=== PATIENT | female | born 1990 | race African-American/Black ===

== ENCOUNTER 2022-06-03 05:42 | Emergency (ER) | payer MEDICAID, OTHER ==
[~2022-06-03] VITALS: Ht 157.5 cm; Wt 57.0 kg
[2022-06-03 05:42] VITALS: BP 127/80
[2022-06-03] MEDS ORDERED: SODIUM CHLORIDE 0.9% 1,000 ML IV ONE ×2 (06:00→07:45)
[2022-06-03] MEDS ORDERED: ONDANSETRON HCL 4 MG/2 ML VIAL IV ONE (06:30)
[2022-06-03 06:55] LABS: Basophils # (auto) 0 10 ^3/uL (0-0.2); Basophils % (auto) 0.4 % (0.0-2.0); Eosinophils # (auto) 0.1 10 ^3/uL (0-0.8); Eosinophils % (auto) 1.1 % (0.0-7.0); Hematocrit 33.8 % (36.0-46.0); Lymphocytes # (auto) 1.1 10 ^3/uL (0.4-5.4); Lymphocytes % (auto) 16.7 % (10.0-50.0); Mean Corpuscular Hemoglobin 33.1 pg (28.0-32.0); Mean Corpuscular Hgb Conc. 35.4 g/dL (32.0-36.0); Mean Corpuscular Volume 93.5 fL (80.0-100.0); Monocytes # (auto) 0.4 10 ^3/uL (0-1.3); Monocytes % (auto) 6.5 % (0.0-12.0); Neutrophils # (auto) 4.9 10 ^3/uL (1.6-8.6); Neutrophils % (auto) 75.3 % (37.0-80.0); Red Blood Cells 3.61 10^6/uL (4.0-5.20); Red Cell Distribution Width 12.2 % (11.8-14.3); White Blood Cell 6.6 10^3/uL (4.4-10.8)
[2022-06-03 07:02] LABS: Albumin 3.8 g/dL (3.4-5.0); Calcium 8.6 mg/dL (8.5-10.1)
[2022-06-03 07:06] LABS: BUN/Creatinine Ratio 17.2; Bilirubin, Total 0.5 mg/dL (0.2-1.0)
[2022-06-03 08:52] LABS: Urine Bacteria FEW /hpf (None Seen); Urine Blood Negative /uL (Negative); Urine Mucus FEW (None Seen); Urine Specific Gravity 1.017 (1.001-1.035); Urine WBC <1 /hpf (0 - 5)
[2022-06-03] MEDS ORDERED: ONDA-144 PO (09:04)
== END 2022-06-03 09:33 | disposition home or self-care (01) ==
LOC: ER 05:42
DX: O21.8 Other vomiting complicating pregnancy (principal); Z79.899 Other long term (current) drug therapy; Z3A.14 14 weeks gestation of pregnancy
CPT/HCPCS: 36415; 80053; 81001; 84702; 85025; 96361; 96374; 99283; J2405; J7030

== ENCOUNTER 2022-07-16 06:03 | Emergency (ER) | payer MEDICAID ==
[~2022-07-16] VITALS: Ht 157.5 cm; Wt 63.3 kg
[~2022-07-16 06:03] MED LIST: ONDA-144 PO
[2022-07-16 06:30] VITALS: BP 108/63
[2022-07-16] MEDS ORDERED: ACETAMINOPHEN 650 mg PER 20.3 mL UD PO ONE (07:15)
[2022-07-16] MEDS ORDERED: cefTRIAXone SOD 1,000 MG VL IM ONE (07:30)
[2022-07-16] MEDS ORDERED: CLIN300C8 PO (07:31)
[2022-07-16] MEDS ORDERED: ACET-1080 PO (07:31)
== END 2022-07-16 07:42 | disposition home or self-care (01) ==
LOC: ER 06:03
DX: K04.7 Periapical abscess without sinus (principal); Z79.2 Long term (current) use of antibiotics; Z79.899 Other long term (current) drug therapy
CPT/HCPCS: 41800; 96372; 99284; J0696

== ENCOUNTER → 2022-08-14 | Emergency (ER) | payer MEDICAID ==
[~2022-08-14] MED LIST changes: +ACET-1080 PO; +CLIN300C8 PO
== END | disposition left against medical advice (07) ==
LOC: ER 06:00
DX: R11.0 Nausea (principal); Z53.21 Procedure and treatment not carried out due to patient leaving prior to being seen by health care provider

== ENCOUNTER 2022-08-18 16:39 | Emergency (ER) | payer MEDICAID ==
[~2022-08-18] VITALS: Ht 157.5 cm; Wt 65.3 kg
[2022-08-18] MEDS ORDERED: SODIUM CHLORIDE 0.9% 1,000 ML IV ONE (17:00)
[2022-08-18 17:12] LABS: Basophils # (auto) 0 10 ^3/uL (0-0.2); Basophils % (auto) 0.5 % (0.0-2.0); Eosinophils # (auto) 0.3 10 ^3/uL (0-0.8); Eosinophils % (auto) 4.5 % (0.0-7.0); Hematocrit 29.7 % (36.0-46.0); Hemoglobin 10.2 g/dL (12.2-16.2); Lymphocytes # (auto) 1.9 10 ^3/uL (0.4-5.4); Lymphocytes % (auto) 25.1 % (10.0-50.0); Mean Corpuscular Hemoglobin 32.5 pg (28.0-32.0); Mean Corpuscular Hgb Conc. 34.3 g/dL (32.0-36.0); Mean Corpuscular Volume 94.8 fL (80.0-100.0); Monocytes # (auto) 0.6 10 ^3/uL (0-1.3); Monocytes % (auto) 7.5 % (0.0-12.0); Neutrophils # (auto) 4.8 10 ^3/uL (1.6-8.6); Neutrophils % (auto) 62.4 % (37.0-80.0); Red Blood Cells 3.13 10^6/uL (4.0-5.20); Red Cell Distribution Width 12.5 % (11.8-14.3); White Blood Cell 7.7 10^3/uL (4.4-10.8)
[2022-08-18 17:15] VITALS: BP 114/72
[2022-08-18 17:46] LABS: BUN/Creatinine Ratio 16.4; Calcium 8.6 mg/dL (8.5-10.1); Potassium 3.7 mmol/L (3.5-5.1)
[2022-08-18] MEDS ORDERED: METOCLOPRAMIDE HCL 5MG/ml INJ 2ml VIAL IV ONE (18:00)
[2022-08-18] MEDS ORDERED: NIF10C PO (20:51)
[2022-08-18] MEDS ORDERED: PROG1CAP2 VG (20:52)
== END 2022-08-18 18:08 | disposition home or self-care (01) ==
LOC: ER 16:39
DX: O21.8 Other vomiting complicating pregnancy (principal); Z3A.24 24 weeks gestation of pregnancy
CPT/HCPCS: 36415; 76805; 80048; 85025; 96361; 96374; 99284; J2765; J7030

== ENCOUNTER 2022-08-18 18:17 | Observation (INO) | payer MEDICAID ==
[~2022-08-18] VITALS: Ht 157.5 cm; Wt 74.8 kg
[2022-08-18] MEDS ORDERED: NIF10C PO (20:51)
[2022-08-18] MEDS ORDERED: PROG1CAP2 VG (20:52)
[2022-08-18] MEDS ORDERED: LACTATED RINGER'S 1,000 ML IV SCH (21:15)
== END 2022-08-18 21:13 | disposition home or self-care (01) ==
LOC: LDRP 18:17
PROVIDERS: ADMIT Obstetrics & Gynecology; ATTEND Obstetrics & Gynecology
DX: O21.2 Late vomiting of pregnancy (principal); O26.892 Other specified pregnancy related conditions, second trimester; R10.9 Unspecified abdominal pain; O62.9 Abnormality of forces of labor, unspecified; Z3A.24 24 weeks gestation of pregnancy
CPT/HCPCS: 59025; 81002; 94760; 96360; 96361; G0378

== ENCOUNTER 2023-06-21 22:43 | Emergency (ER) | payer MEDICAID ==
[~2023-06-21] VITALS: Ht 157.5 cm; Wt 53.3 kg
[~2023-06-21 22:43] MED LIST changes: +CLIN300C70 PO; -CLIN300C8 PO; +NIF10C PO; +PROG200C21 VG
[2023-06-21 22:53] VITALS: BP 121/91; PULSE 107; RESP 18; TEMP 99.1; O2SAT 98
[2023-06-21] MEDS ORDERED: cefTRIAXone SOD 1,000 MG VL IM ONE (23:00)
[2023-06-21] MEDS ORDERED: DexAMETHasone SOD PHOS 10MG/1ML VIAL INJ IM ONE (23:00)
[2023-06-21] MEDS ORDERED: BENZ100C97 PO (23:02)
[2023-06-21] MEDS ORDERED: AZITTAB PO (23:02)
== END 2023-06-22 10:59 | disposition home or self-care (01) ==
LOC: ER 22:51
DX: J02.9 Acute pharyngitis, unspecified (principal); Z79.2 Long term (current) use of antibiotics; Z79.899 Other long term (current) drug therapy
CPT/HCPCS: 96372; 99284; J0696; J1100

== ENCOUNTER 2024-04-04 19:15 | Emergency (ER) | payer MEDICAID ==
[~2024-04-04] VITALS: Ht 157.5 cm; Wt 52.2 kg
[~2024-04-04 19:15] MED LIST changes: +AZITTAB PO; +BENZ100C97 PO; +CLIN1CAP70 PO; -CLIN300C70 PO
[2024-04-04 19:20] VITALS: BP 133/100; PULSE 96; RESP 16; TEMP 98.3; O2SAT 99
[2024-04-04] MEDS: ONDANSETRON ODT 4 MG TAB PO ONE (19:29)
[2024-04-04 20:18] LABS: Basophils # (auto) 0.1 10 ^3/uL (0-0.2); Basophils % (auto) 0.9 % (0.0-2.0); Eosinophils # (auto) 0.3 10 ^3/uL (0-0.8); Eosinophils % (auto) 4.5 % (0.0-7.0); Hematocrit 37.7 % (36.0-46.0); Hemoglobin 13.2 g/dL (12.2-16.2); Lymphocytes # (auto) 2.8 10 ^3/uL (0.4-5.4); Lymphocytes % (auto) 48.6 % (10.0-50.0); Mean Corpuscular Hemoglobin 33.5 pg (28.0-32.0); Mean Corpuscular Hgb Conc. 34.9 g/dL (32.0-36.0); Mean Corpuscular Volume 95.8 fL (80.0-100.0); Monocytes # (auto) 0.4 10 ^3/uL (0-1.3); Monocytes % (auto) 6.4 % (0.0-12.0); Neutrophils # (auto) 2.3 10 ^3/uL (1.6-8.6); Neutrophils % (auto) 39.6 % (37.0-80.0); Nucleated Red Blood Cells % 0.1 %; Red Blood Cells 3.94 10^6/uL (4.0-5.20); Red Cell Distribution Width 12.9 % (11.8-14.3); White Blood Cell 5.8 10^3/uL (4.4-10.8)
[2024-04-04 20:35] LABS: Alanine Aminotransferase 20 U/L (7-40); Albumin 4.7 g/dL (3.2-4.8); Alkaline Phosphatase 43 U/L (46-116); Anion Gap 8 (5-15); Aspartate Aminotransferase 10 U/L (13-40); BUN/Creatinine Ratio 6.1 (10.0-20.0); Blood Urea Nitrogen 6 mg/dL (9-23); Calcium 9.5 mg/dL (8.7-10.4); Carbon Dioxide 26 mmol/L (20-30); Chloride 108 mmol/L (98-107); Glucose 102 mg/dL (74-106); Lipase 42 U/L (12-53); Potassium 4.2 mmol/L (3.5-5.1); Sodium 142 mmol/L (136-145)
[2024-04-04 20:36] LABS: Bilirubin, Total 0.6 mg/dL (0.2-1.0); Total Protein 7.3 g/dL (5.7-8.2)
[2024-04-04 21:18] LABS: Urine Bacteria None Seen /hpf (None Seen)
[2024-04-04 21:55] LABS: Urine Blood Negative /uL (Negative); Urine Clarity Clear (Clear); Urine Color Yellow (Yellow); Urine Mucus FEW (None Seen); Urine Protein, UAD TRACE (Negative); Urine Specific Gravity 1.023 (1.001-1.035); Urine Urobilinogen Normal (Negative); Urine WBC <1 /hpf (0 - 5); Urine pH 6.5 (5.0-9.0)
[2024-04-04] MEDS: HYDROcodone-ACET 5/325MG TAB PO ONE (21:58)
[2024-04-04] MEDS ORDERED: IBUP1TAB5 PO (23:20)
[2024-04-04] MEDS ORDERED: HYDR-4902 PO (23:20)
[2024-04-04] MEDS ORDERED: ZOFR4T PO (23:21)
[2024-04-05] MEDS: TAMSULOSIN HYDROCHLORIDE 0.4 MG CAP PO ONE (00:06)
[2024-04-05] MEDS ORDERED: IBUPROFEN 600 MG TAB PO ONE (00:30)
== END 2024-04-05 00:19 | disposition home or self-care (01) ==
LOC: EEVIPCON 19:15 → ER 19:15
DX: N20.1 Calculus of ureter (principal); R10.2 Pelvic and perineal pain; J45.909 Unspecified asthma, uncomplicated
CPT/HCPCS: 36415; 74176; 80053; 81001; 83690; 84702; 85025; 99284; Q0162